=== PATIENT | male | born 1995 | race Two or more races ===

== ENCOUNTER 2022-12-25 14:06 | Emergency (ER) | payer OTHER ==
[2022-12-25] MEDS ORDERED: Ondansetron 4 MG Tab.DIS PO ONE (14:42)
[2022-12-25] MEDS ORDERED: Dicyclomine 10 MG Cap PO ONE (14:42)
== END 2022-12-25 15:38 | disposition home or self-care (01) ==
LOC: MW.ED 14:06
DX: R11.2 Nausea with vomiting, unspecified (principal); R19.7 Diarrhea, unspecified; R10.9 Unspecified abdominal pain
CPT/HCPCS: 99283; A9270